=== PATIENT | female | born 1995 | race Caucasian/White ===

== ENCOUNTER 2019-05-30 14:42 | Outpatient (CLI) | payer BC, SELFPAY ==
[2019-06-01 09:44] LABS: Hepatitis C Ab w Rflx HCV PCR Negative (NEGAT)
[2019-06-01 10:49] LABS: Hepatitis B Surface Ag Negative (NEGAT)
[2019-06-01 10:52] LABS: HIV-1/2 Ag & Ab Screen Negative (NEGAT)
[2019-06-01 12:05] LABS: Syphilis Serology (RPR) Negative (Negative)
[2019-06-01 15:27] LABS: Chlamydia Result Negative; GC Result Negative; Specimen Description CERVIX
== END 2019-05-30 15:02 ==
PROVIDERS: PCP Nurse Practitioner; Visit Provider Nurse Practitioner Family
DX: Z11.3 Encounter for screening for infections with a predominantly sexual mode of transmission (principal); Z11.59 Encounter for screening for other viral diseases; Z11.4 Encounter for screening for human immunodeficiency virus [HIV]
CPT/HCPCS: 36415; 86803; 87340; 87389; 87491; 87591; 86592

== ENCOUNTER 2020-03-14 14:05 | Outpatient (REF) | payer BC, SELFPAY ==
[2020-03-16 07:36] LABS: COVID-19 RT-PCR Result NEGATIVE (Negative)
== END 2020-03-14 14:25 ==
LOC: NCHCN 14:05
PROVIDERS: PCP Nurse Practitioner; Visit Provider Nurse Practitioner Family
DX: Z11.59 Encounter for screening for other viral diseases (principal)
CPT/HCPCS: U0003

== ENCOUNTER 2020-08-15 20:20 | Outpatient (REF) | payer BC, SELFPAY ==
[2020-08-21 02:59] LABS: Patient Race White; SARS-CoV-2 RNA Undetected (Undetected); SARS-CoV-2 Specimen Source Nasal
== END 2020-08-15 20:40 ==
LOC: NCHCN 20:20
PROVIDERS: PCP Nurse Practitioner; Visit Provider Nurse Practitioner Family
DX: R51.9 Headache, unspecified (principal)
CPT/HCPCS: U0003

== ENCOUNTER 2020-09-27 02:19 | Outpatient (REF) | payer BC, SELFPAY ==
[2020-09-27 20:30] LABS: COVID-19 RT-PCR UVMMC Result Negative (Negative)
== END 2020-09-27 02:39 ==
LOC: LBO 02:19
PROVIDERS: PCP Nurse Practitioner; Visit Provider Nurse Practitioner Family
DX: Z11.59 Encounter for screening for other viral diseases (principal)
CPT/HCPCS: U0003

== ENCOUNTER 2021-01-31 11:02 | Outpatient (CLI) | payer OTHER, SELFPAY ==
--- NOTE | 2021-01-31 10:45 | DI.RAD_ITS ---
EXAM: XR WRIST LT COMP NAVICULAR CLINICAL HISTORY: left wrist pain. TECHNIQUE: 2D digital imaging was performed. COMPARISON: No exams were available for comparison FINDINGS: BONES: No acute fracture is present. No bony destructive lesion is seen. JOINTS: The carpal bones are normally aligned. SOFT TISSUE: Normal. IMPRESSION: Unremarkable radiographs of the left wrist. DATA REPOSITORY: RADIATION DOSE DELIVERED:
== END 2021-01-31 11:03 | disposition home or self-care (01) ==
LOC: DIORS 11:03
PROVIDERS: PCP Nurse Practitioner; Referring Provider Nurse Practitioner Family; Visit Provider Physician Assistant
DX: M25.532 Pain in left wrist (principal)
CPT/HCPCS: 73110

== ENCOUNTER 2021-06-03 04:23 | Outpatient (CLI) | payer OTHER, SELFPAY ==
[2021-06-03 19:38] LABS: COVID-19 RT-PCR UVMMC Result Negative (Negative)
== END 2021-06-03 04:24 | disposition home or self-care (01) ==
LOC: LBO 04:23
PROVIDERS: PCP Nurse Practitioner; Visit Provider Nurse Practitioner Family
DX: Z20.822 Contact with and (suspected) exposure to COVID-19 (principal)
CPT/HCPCS: U0003

== ENCOUNTER 2021-08-22 12:53 | Outpatient (REF) | payer OTHER, SELFPAY ==
--- NOTE | 2021-08-22 11:00 | PAPFT_PTH ---
PATIENT: Deanna Schmitt LOC: [facility] U#:[id number] AGE/SX: 26/F ROOM: RE08/22/[address]: MARCIA Freitas : 1995 BED: DIS: 08/22/2021 SPEC #: [id number] RECD: 08/22/21 12:57 STATUS: DIAZ REQ #: [id number] KYLAH: 08/22/21 11:[address]: Hodan Carmona DEPT: [facility] Cytology RECD BY: Alejandra Grace ENTERED: 08/22/21 12:57 SP TYPE: PAPFT OTHR DR: Nadine Lira Tissues: 1 - CX/ENDOCX FOR PAP SMEARS Procedures: PAP THIN PREP/[facility] Screening Comments: [id number]
[2021-08-25 14:39] LABS: Chlamydia Result Negative (Negative); GC Result Negative (Negative)
== END 2021-08-22 12:54 | disposition home or self-care (01) ==
LOC: LBN 12:53
PROVIDERS: PCP Nurse Practitioner; Visit Provider Nurse Practitioner Family
DX: Z12.4 Encounter for screening for malignant neoplasm of cervix (principal); Z11.3 Encounter for screening for infections with a predominantly sexual mode of transmission
CPT/HCPCS: 87491; 87591; 88142

== ENCOUNTER 2022-01-23 20:49 | Outpatient (REF) | payer OTHER, SELFPAY ==
[2022-02-02 10:49] LABS: Testosterone, Free 0.47 ng/dL (0.06-1.06); Testosterone, Total 43 ng/dL (8-60)
== END 2022-01-23 20:50 | disposition home or self-care (01) ==
LOC: NCHCN 20:49
PROVIDERS: PCP Nurse Practitioner; Visit Provider Nurse Practitioner Family
DX: L70.8 Other acne (principal)
CPT/HCPCS: 84402; 84403

== ENCOUNTER 2022-01-26 09:33 | Outpatient (REF) | payer OTHER, SELFPAY | END 2022-01-26 09:34 | disposition home or self-care (01) | LOC: LBN 09:33 | PROVIDERS: PCP Nurse Practitioner; Visit Provider Nurse Practitioner Women's Health | DX: R30.0 Dysuria (principal) | CPT/HCPCS: 87086 ==

== ENCOUNTER 2022-02-16 13:48 | Emergency (ER) | payer OTHER, SELFPAY ==
[2022-02-16 14:16] VITALS: BP 121/78; PULSE 90; RESP 16; TEMP 36.9; O2SAT 97
[2022-02-16 14:26] LABS: Bilirubin Negative (Negative); Blood Negative (Negative); Clarity Sl Cloudy (Clear); Glucose Negative (Negative); Ketones 40 mg/dL (Negative); Leukocyte Esterase Negative (Negative); Nitrite Negative (Negative); Urobilinogen 0.2 EU/dL (Up TO 0.2)
--- NOTE | 2022-02-16 15:42 | NUR.NOTE ---
Nursing Note:Pt refused repeat v/s to be done while waiting to see provider.
[2022-02-16 17:15] VITALS: BP 120/86; PULSE 99; RESP 16; TEMP 37.8; O2SAT 97
--- NOTE | 2022-02-16 18:15 | DI.CT_ITS ---
Exam(s) CT RENAL COLIC WO EXAM: CT RENAL COLIC WO CLINICAL HISTORY: bilateral flank pain. TECHNIQUE: Imaging Protocol: Axial computed tomography images with coronal and sagittal reformatted images were created and reviewed CONTRAST MATERIAL: Intravenous: none Oral: None COMPARISON: No exams were available for comparison FINDINGS: VISUALIZED LUNG BASES: Mild increased markings in the posterior basal segment of both lower lobes, sl ightly more so on the right side. No associated pleural effusions.. ABDOMEN: There is no ascites. LIVER: There are no obvious focal hepatic lesions evident of this noninfused study. GALLBLADDER/BILIARY: No obvious gallbladder pathology. CBD is not dilated. PANCREAS: No evidence of pancreatic mass nor dilatation of the pancreatic duct. SPLEEN: Spleen is not enlarged. No obvious intrasplenic lesions. ADRENALS: There are no significant adrenal masses. KIDNEYS:No cysts evident. No solid renal masses. No calculi nor hydronephrosis. . ABDOMINAL AORTA: Abdominal aorta is not enlarged. LYMPH NODES: There is no retroperitoneal nor paraaortic adenopathy. ABDOMINAL WALL: No evidence of significant anterior abdominal wall nor inguinal hernia. GI: There is no evidence of bowel obstruction, free air, nor abscess. PELVIS: LYMPH NODES: There is no intrapelvic nor inguinal adenopathy. GI: The appendix is not able to be identified. No obvious acute appendicitisno evidence of sigmoid d iverticulitis. URINARY BLADDER: No calculi nor obvious masses evident REPRODUCTIVE: There is an IUD in the endometrial canal of the uterus. OSSEOUS: No significant osseous lesions. No fractures. Sacroiliac joints unremarkable IMPRESSION: 1. No significant acute findings on this noninfused study. The appendix is not identified. There is no evidence of obvious acute appendicitis. 2. No renal calculi nor obstruction of the urinary tracts. 3. IUD is noted in the endometrial canal. RADIATION DOSE DELIVERED: 662.63mGy.cm Total DLP DATA REPOSITORY: All CT scans at this facility are submitted to the National Radiology Data Registry (NRDR) Dose Index Registry (DIR) with the [employer] (ACR). RADIATION OPTIMIZATION: All CT scans at this facility use at least one of these dose optimization te chniques: automated exposure control; mA and/or kV adjustment per patient size (includes targeted exa ms where dose is matched to clinical indication); or iterative reconstruction.
--- NOTE | 2022-02-16 18:31 | ED.GENADUL_ITS ---
Discharge Plan Disposition Patient Disposition: HOME Condition: Stable Discharge Details Clinical Impression: Flank pain Primary Care Provider: Nadine Lira ED Provider: Daljit Freire Home Meds and New Rx's Prescriptions: New ciprofloxacin HCl 500 mg tablet 500 mg PO BID Qty: 14 0RF Continued ParaGard T 380A 380 square mm intrauterine device 1 device intrauterine ONCE Qty: 1 0RF Rx Instructions: as a single dose ibuprofen 800 mg tablet 800 mg PO Q8H Qty: 60 3RF Discharge Instructions Additional Instructions: Your cat scan did not show evidence of kidney stones. You are being treated for possible kidney infection while the culture is pending you can take 1000mg tylenol and 600mg ibuprofen every 6 hours as needed follow up with your primary care provider if symptoms continue in a week if you feel more ill, have severe worsening pain or right lower abdomen pain return to the emergency department Medical Decision Making 26 yo female who was treated for a uti at the end of January with 5 days of macrobid per patient, comes in with recurrent dysuria and flank pain since yesterday along with body aches and chills. Denies known fevers, but does have low grade temp here to 37.8. She had a ua done prior to my exam which was unremarkable. She arrives stable but appears uncomfortable. She has bilateral cva tenderness, no rashes of the back, no significant abdominal tenderneses. States it serrano to urinate and had blood. Given her symptoms and bilateral cva tenderness will order urine culture, cbc, cmp and renal colic ct to further evaluate. She has no tachcyardia, hypoxia or pleuritic chest pain and no evidence of dvt so doubt PE pt feels much better, pain subsided. Labs remarkable for wbc of 15. She is stable, still does have the bilateral cva tenderness. CT shows no acute findings though they commented appendix not visualized. She has no rlq tenderness or tenderness anywhere on her abdomen so doubt appendicitis and do not feel ct with oral contrast indicated. Given the urinary symptoms and cva tenderness will treat as possible pyelo while cutlure is pending with cipro. Advised to f/u with pcp and return precautions given Differential Diagnosis Differential Diagnosis: pyelo, kidney stone, pancreatitis Medical Records Medical records reviewed: Yes I reviewed the patient's medical records. Imaging Data Radiologic Study: Attestation: I personally reviewed and interpreted this imaging study as follows: Imaging: CT Scan Radiologist's impression: MPRESSION: The appendix is not identified. If acute appendicitis is suspected clinically, consider repeat study after oral contrast reaches the rectum. Lab Data Lab results reviewed: Yes I reviewed the patient's lab results. HPI General Mode of arrival: ambulatory . Date/Time Provider Initiated Documentation: 02/16/22 15:16 . Limitations to Documentation: no limitations . Information obtained by: patient . History of Present Illness 26 year old F presents to the emergency department with the chief complaint of flank pain, described as moderate, Patient started experiencing this day(s) and it has been constant. improves with No relieving factors improve symptom(s), No exacerbating factors reported . Patient notes other (body aches, dysuria). Related Data Home Medications Medication Instructions Recorded Confirmed copper 380 square mm intrauterine 1 device INTRAUTERINE ONCE #1 ea 09/03/21 01/26/22 device (ParaGard T 380A) ibuprofen 800 mg tablet 800 mg PO Q8H #60 tab 10/31/21 01/26/22 ciprofloxacin HCl 500 mg tablet 500 mg PO BID #14 tab 02/16/22 Previous Rx's Medication Instructions Recorded copper 380 square mm intrauterine 1 device INTRAUTERINE ONCE #1 ea 09/03/21 device (ParaGard T 380A) ibuprofen 800 mg tablet 800 mg PO Q8H #60 tab 10/31/21 ciprofloxacin HCl 500 mg tablet 500 mg PO BID #14 tab 02/16/22 Allergies Allergy/AdvReac Type Severity Reaction Status Date / Time No Known Drug Allergies Allergy Verified 01/26/22 08:28 General Stated Complaint: FlankPain VANIA: 3 Review of Systems All systems reviewed & are unremarkable except as noted in HPI and below Constitutional Constitutional: Denies weakness Cardiovascular Cardiovascular: Denies chest pain and Denies dyspnea Respiratory Respiratory: Denies cough and Denies dyspnea Gastrointestinal Gastrointestinal: Denies abdominal pain and Denies vomiting Integumentary/Breasts Skin/Breast: Denies rash Neurologic Neurologic: Denies weakness PFSH All Active Problems (Updated 02/16/22 @ 20:10 by Daljit Freire MD) Flank pain (Acute) IUD surveillance (Acute) Dysmenorrhea (Acute) IUD (intrauterine device) in place (Acute) Contraception (Acute) Extensor intersection syndrome of left wrist (Acute) Depo-Medrol injection: 01/31/2021 De Quervain's tenosynovitis, right (Acute) Depo-Medrol injection: 01/31/2021 Family History Father Essential hypertension Scleritis Social History Smoking/Tobacco Use Status: Never Smoking risk assessment performed?: Yes Alcohol Intake: never Drug use: Never Substance use type: does not use Do you feel safe at home: Yes Do you feel safe in your relationship?: Yes History History 0 Para Hx # Term Pregnancies Multiple births Hx # Pregnancies Ectopic pregnancies AB induced Hx Number of Living Children AB spontaneous Exam Const General: no acute distress Orientation: alert HENMT Head: normal to inspection Ears: external ears normal General nose exam: external nose normal Mouth: moist mucous membranes Eyes General: appearance normal, both eyes and all related structures Neck Neck: normal visual inspection Resp Effort & Inspection: normal respiratory effort and able to speak in complete sentences Cardio Rate: regular rate GI Palpation: soft and nontender Back/Spine/Pelvis Back: CVA tenderness Skin General skin exam: no rashes or lesions noted Neuro General: patient alert and patient oriented x3 Extrem General: normal to inspection Psych Mental Status: mental status grossly normal Course Vital Signs Vital signs: Vital Signs Temperature 36.9 C 02/16/22 14:16 Pulse 90 02/16/22 14:16 Respiratory Rate 16 02/16/22 14:16 Blood Pressure 121/78 02/16/22 14:16 Pulse Oximetry 97 02/16/22 14:16 Temperature 37.8 C H 02/16/22 17:15 Temperature Source Tympanic 02/16/22 17:15 Pulse 99 H 02/16/22 17:15 Respiratory Rate 16 02/16/22 17:15 Blood Pressure 120/86 02/16/22 17:15 Blood Pressure Position Sitting 02/16/22 14:16 Pulse Oximetry 97 02/16/22 17:15 Oxygen Delivery Method Room Air 02/16/22 17:15 Oxygen Flow Rate 0 02/16/22 17:15 Pain Level 4 02/16/22 14:19 Lab/Test Results Lab/Test Results: 02/16/22 18:30 Urine - Clean Catch Urine Culture - Pending Laboratory Tests Range/Units 02/16/22 14:15 Urine Color (Yellow) Yellow Urine Clarity (Clear) Sl Cloudy Urine pH (5-8) 6.0 Ur Specific [place] (1.005-1.025) 1.010 Urine Protein (Negative) mg/dL Negative Urine Ketones (Negative) mg/dL 40 H Urine Blood (Negative) Negative Urine Nitrite (Negative) Negative Urine Bilirubin (Negative) Negative Urine Urobilinogen (Up TO 0.2) EU/dL 0.2 Ur Leukocyte Esterase (Negative) Negative Urine Glucose (Negative) mg/dL Negative POC Urine Test Start: 02/16/22 14:20 Freq: Status: Complete Protocol: Document 02/16/22 14:21 MORGAN (Rec: 02/16/22 14:21 MORGAN [id number]) Test(Urine)-POC POC- Test(urine) Negative POC- Test(urine) Negative
[2022-02-16] MEDS: Ketorolac 15 MG/ML VIAL IVP (18:42)
[2022-02-16] MEDS: Ondansetron 4 MG/2 ML VIAL IVP (18:43)
[2022-02-16] MEDS: Normal Saline 1,000 ML 1000 ML IV (18:43)
[2022-02-16 18:59] LABS: Abs Immature Grans 0.05 10^3/uL (0.0-0.06); Absolute Basophil Count 0.03 10^3/uL (0.0-0.2); Absolute Neutrophil Count 13.62 10^3/uL (1.2-6.7); Basophils % 0.2; Eosinophils % 2.6; HCT 37.9 % (36.0-46.0); HGB 12.6 g/dL (11.2-15.7); Immature Grans % 0.3; Lymphocytes % 3.9; MCH 30.5 pg (27.0-33.0); MCHC 33.2 % (32.0-36.0); MCV 92 fL (80-95); Platelet Count 240 10^3/uL (130-400); RBC 4.13 10^6/uL (3.93-5.22); RDW 12.6 % (11.7-14.6); RDW-SD 42.5 fL; WBC 15.48 10^3/uL (4.4-10.8)
[2022-02-16 19:08] LABS: Absolute Monocyte Count 0.77 10^3/uL (0.1-0.8)
[2022-02-16 19:14] LABS: ALT 24 U/L (14-59); AST 18 U/L (15-37); Albumin 3.8 g/dL (3.4-5.0); Alkaline Phosphatase 62 U/L (46-116); Anion Gap 8.6 mmol/L (3-11); BUN 5 mg/dL (7-18); Bilirubin, Direct 0.3 mg/dL (0.0-0.2); Bilirubin, Total 1.3 mg/dL (0.2-1.0); CO2 24.4 mmol/L (21.0-32.0); CREATININE 0.8 mg/dL (0.55-1.02); Calcium 8.8 mg/dL (8.5-10.1); Chloride 101 mmol/L (98-107); Glucose 102 mg/dL (74-106); Lipase 50 U/L (73-393); Magnesium 2.7 mg/dL (1.8-2.4); Potassium 3.2 mmol/L (3.5-5.1); Sodium 134 mmol/L (136-145); Total Protein 7.3 g/dL (6.4-8.2)
[2022-02-16 19:36] LABS: COVID-19 PCR Negative (Negative); Influenza A PCR Negative (Negative); Influenza B PCR Negative (Negative); RSV PCR Negative (Negative)
--- NOTE | 2022-02-16 19:42 | DI.VRAD_ITS ---
PROCEDURE INFORMATION: Exam: CT Abdomen And Pelvis Without Contrast Exam date and time: 02/16/2022 7:06 PM Age: 26 years old Clinical indication: Other: Bilateral flank pain TECHNIQUE: Imaging protocol: Computed tomography of the abdomen and pelvis without contrast. COMPARISON: US PELVIS TRANSVAG 04/27/2018 3:34 PM FINDINGS: Lungs: Right basilar atelectasis Liver: Normal. No mass. Gallbladder and bile ducts: Normal. No calcified stones. No ductal dilation. Pancreas: Normal. No ductal dilation. Spleen: Normal. No splenomegaly. Adrenal glands: Normal. No mass. Kidneys and ureters: There is no evidence of renal or ureteral calcifications. Stomach and bowel: Constipation in the colon Appendix: The appendix is not identified. If acute appendicitis is suspected clinically, consider repeat study after oral contrast reaches the rectum. Intraperitoneal space: Mild amount of free fluid in the pelvis Vasculature: Unremarkable. No abdominal aortic aneurysm. Lymph nodes: Unremarkable. No enlarged lymph nodes. Urinary bladder: Unremarkable as visualized. Reproductive: IUD in the uterus Bones/joints: Unremarkable. No acute fracture. Soft tissues: Unremarkable. IMPRESSION: The appendix is not identified. If acute appendicitis is suspected clinically, consider repeat study after oral contrast reaches the rectum. Dictated and Authenticated by: Quinton Carl MD. Ordering:KRYSTAL Boacnegra MD
[2022-02-16 19:46] LABS: Source Nasopharynx
[2022-02-16] MEDS: Ciprofloxacin 500 MG TAB PO (20:16)
== END 2022-02-16 20:22 | disposition home or self-care (01) ==
PROVIDERS: Emergency Provider Emergency Medicine; PCP Nurse Practitioner Family
DX: R10.9 Unspecified abdominal pain (principal); R30.0 Dysuria; D72.829 Elevated white blood cell count, unspecified
CPT/HCPCS: 80053; 81025; 83690; 87637; 96361; 96374; 96375; 99284; 74176; 81003; 82248; 83735; 85025; 87086; J1885; J2405

== ENCOUNTER 2022-03-12 19:19 | Outpatient (REF) | payer OTHER, SELFPAY ==
[2022-03-13 20:04] LABS: FSH 5.7 mIU/mL (See Note); LH 9.2 mIU/mL (See Note)
[2022-03-17 14:49] LABS: Dehydroepiandrosterone (DHEA) 3.1 ng/mL (<13)
[2022-03-18 10:58] LABS: Testosterone, Free 0.38 ng/dL (0.06-1.06); Testosterone, Total 47 ng/dL (8-60)
== END 2022-03-12 19:20 | disposition home or self-care (01) ==
LOC: NCHCN 19:19
PROVIDERS: PCP Nurse Practitioner; Visit Provider Nurse Practitioner Family
DX: L70.8 Other acne (principal); Z13.29 Encounter for screening for other suspected endocrine disorder
CPT/HCPCS: 84402; 84403; 82626; 83001; 83002

== ENCOUNTER 2022-08-18 19:49 | Outpatient (REF) | payer OTHER, SELFPAY ==
[2022-08-18 19:22] LABS: ESR 3 mm/hr (0-20)
[2022-08-18 19:24] LABS: HCT 38.5 % (36.0-46.0); HGB 12.7 g/dL (11.2-15.7); MCH 30.6 pg (27.0-33.0); MCV 93 fL (80-95); MPV 11.6 fL (8.0-11.0); Platelet Count 261 10^3/uL (130-400); RBC 4.15 10^6/uL (3.93-5.22); RDW 12.3 % (11.7-14.6); RDW-SD 42.4 fL; WBC 9.19 10^3/uL (4.4-10.8)
[2022-08-18 19:38] LABS: Prothrombin Time 9.9 sec (9.3-11.0)
[2022-08-18 19:41] LABS: ALT 20 U/L (14-59); AST 17 U/L (15-37); Alkaline Phosphatase 59 U/L (46-116); Anion Gap 9.1 mmol/L (3-11); BUN 10 mg/dL (7-18); Bilirubin, Total 0.5 mg/dL (0.2-1.0); CO2 28.9 mmol/L (21.0-32.0); CREATININE 0.7 mg/dL (0.55-1.02); Calcium 9.3 mg/dL (8.5-10.1); Chloride 103 mmol/L (98-107); Estimated GFR 120.74 (mL/min/1.73m2); Glucose 91 mg/dL (74-106); Potassium 3.7 mmol/L (3.5-5.1); Sodium 141 mmol/L (136-145); Total Protein 7.2 g/dL (6.4-8.2)
[2022-08-19 16:57] LABS: Rheumatoid Factor <8.6 IU/mL (<12.0)
[2022-08-20 09:37] LABS: Lyme Ab w Rflx to Lyme Confirm Negative (Negative)
[2022-08-20 14:03] LABS: ANA Interpretation Negative (Negative)
[2022-08-22 18:08] LABS: Anaplasma phagocytophilum Negative (Negative); B. miyamotoi PCR Negative (Negative); Babesia divergens/MO-1 Negative (Negative); Babesia duncani Negative (Negative); Babesia microti Negative (Negative); Ehrlichia chaffeensis Negative (Negative); Ehrlichia ewingii/canis Negative (Negative); Ehrlichia muris eauclairensis Negative (Negative)
== END 2022-08-18 19:50 | disposition home or self-care (01) ==
LOC: NCHCN 19:49
PROVIDERS: PCP Nurse Practitioner; Visit Provider Nurse Practitioner Family
DX: R23.8 Other skin changes (principal); M62.9 Disorder of muscle, unspecified; M25.59 Pain in other specified joint
CPT/HCPCS: 80053; 85027; 85652; 87798; 85610; 86038; 86140; 86431; 86618

== ENCOUNTER 2022-10-27 09:55 | Outpatient (REF) | payer OTHER, SELFPAY ==
[2022-10-27 17:09] LABS: TSH (W/Ref FT4) 2.23 uIU/mL (0.36-3.74)
== END 2022-10-27 09:56 | disposition home or self-care (01) ==
LOC: NCHCN 09:55
PROVIDERS: PCP Nurse Practitioner; Visit Provider Nurse Practitioner Family
DX: L65.9 Nonscarring hair loss, unspecified (principal)
CPT/HCPCS: 84443

== ENCOUNTER 2024-03-20 16:18 | Outpatient (CLI) | payer BC, SELFPAY ==
[2024-03-20 10:26] LABS: Abs Immature Grans 0.02 10^3/uL (0.0-0.06); Absolute Basophil Count 0.04 10^3/uL (0.0-0.2); Absolute Eosinophil Count 0.16 10^3/uL (0.0-0.7); Absolute Lymphocyte Count 2.42 10^3/uL (1.2-3.4); Absolute Neutrophil Count 4.63 10^3/uL (1.2-6.7); Basophils % 0.5 %; Eosinophils % 2.1 %; HCT 39.3 % (36.0-46.0); HGB 12.9 g/dL (11.2-15.7); Immature Grans % 0.3 %; Lymphocytes % 31.1 %; MCHC 32.8 % (32.0-36.0); MCV 91 fL (80-95); MPV 10.8 fL (8.0-11.0); Monocytes % 6.4 %; Neutrophils % 59.6 %; Platelet Count 244 10^3/uL (130-400); RDW 12.7 % (11.7-14.6); RDW-SD 42.6 fL; WBC 7.77 10^3/uL (4.4-10.8)
[2024-03-20 10:29] LABS: ESR 4 mm/hr (0-20)
[2024-03-20 11:13] LABS: ALT 24 U/L (14-59); AST 17 U/L (15-37); Albumin 3.6 g/dL (3.4-5.0); Alkaline Phosphatase 80 U/L (46-116); Anion Gap 8.7 mmol/L (3-11); BUN 12 mg/dL (7-18); Bilirubin, Total 0.5 mg/dL (0.2-1.0); CO2 27.3 mmol/L (21.0-32.0); CREATININE 0.8 mg/dL (0.55-1.02); Calcium 8.7 mg/dL (8.5-10.1); Calculated LDL 74 mg/dL (<100); Chloride 105 mmol/L (98-107); Cholesterol 172 mg/dL (<200); Estimated GFR 102.22 (mL/min/1.73m2); Glucose 94 mg/dL (74-106); HDL Cholesterol 89 mg/dL (40-60); Potassium 4.1 mmol/L (3.5-5.1); Sodium 141 mmol/L (136-145); TSH (W/Ref FT4) 1.49 uIU/mL (0.36-3.74); Total Protein 7.3 g/dL (6.4-8.2); Triglyceride 45 mg/dL (<150); Vitamin D 25 Total 30.6 ng/mL (30-100)
[2024-03-20 11:24] LABS: C-Reactive Protein < 0.50 mg/dL (<or=0.5)
[2024-03-20 17:26] LABS: Rheumatoid Factor <8.6 IU/mL (<12.0)
[2024-03-21 09:27] LABS: Cyclic Citrullinated Peptide <2.5 U/mL (<5.0)
[2024-03-21 11:01] LABS: Lyme Ab w Rflx to Lyme Confirm Negative (Negative)
[2024-03-21 14:15] LABS: ANA Interpretation Negative (Negative)
[2024-03-22 19:24] LABS: Anaplasma phagocytophilum Negative (Negative); B. miyamotoi PCR Negative (Negative); Babesia divergens/MO-1 Negative (Negative); Babesia duncani Negative (Negative); Babesia microti Negative (Negative); Ehrlichia chaffeensis Negative (Negative); Ehrlichia ewingii/canis Negative (Negative); Ehrlichia muris eauclairensis Negative (Negative)
== END 2024-03-20 16:19 | disposition home or self-care (01) ==
LOC: LBO 16:18
PROVIDERS: PCP Nurse Practitioner Family; Visit Provider Nurse Practitioner
DX: E55.9 Vitamin D deficiency, unspecified (principal); Z13.220 Encounter for screening for lipoid disorders; F41.9 Anxiety disorder, unspecified; M25.40 Effusion, unspecified joint; R53.83 Other fatigue
CPT/HCPCS: 36415; 80053; 80061; 82306; 85652; 86200; 87798; 84443; 85025; 86038; 86140; 86431; 86618

== ENCOUNTER → 2024-03-27 10:43 | Outpatient (CLI) | payer BC, SELFPAY ==
--- NOTE | 2024-03-27 13:45 | DI.RAD_ITS ---
Exam(s) XR SCOLIOSIS T-L SPINE EXAM: XR SCOLIOSIS T-L SPINE CLINICAL HISTORY: Scoliosis evaluation. TECHNIQUE: 2D digital imaging was performed. COMPARISON: No exams were available for comparison FINDINGS: Scoliosis: Mild upper thoracic dextroscoliosis of 11 degrees. Thoracolumbar scoliosis of 26 degrees, convex toward the left with apex at the T12-L1 level. Vertebrae: No anomalies seen. No hypertrophy is identified. Remainder of the visualized osseous and soft tissue structures: No acute findings. IMPRESSION: Mild upper thoracic dextro scoliosis 11 degrees. Levoscoliosis thoracolumbar junction 26 degrees. DATA REPOSITORY: RADIATION DOSE DELIVERED:
== END ==
PROVIDERS: PCP Nurse Practitioner Family; Visit Provider Nurse Practitioner
DX: M41.84 Other forms of scoliosis, thoracic region (principal)
CPT/HCPCS: 72082

== ENCOUNTER 2024-04-24 15:35 | Outpatient (REF) | payer BC, SELFPAY ==
--- NOTE | 2024-04-24 15:00 | PAPFT_PTH ---
PATIENT: Deanna Schmitt LOC: [facility] U#:[id number] AGE/SX: 28/F ROOM: RE04/24/[address]: Radha Freire NP : 1995 BED: DIS: 04/24/2024 SPEC #: [id number] RECD: 04/24/24 17:35 STATUS: DIAZ REINA #: [id number] KYLAH: 04/24/24 15:[address]: Mouna PRASAD,Radha DEPT: [facility] Cytology RECD BY: Alejandra Grace ENTERED: 04/24/24 17:36 SP TYPE: PAPFT OTHR DR: Yareli Cruz, SANTIAGO Tissues: 1 - CX/ENDOCX FOR PAP SMEARS Procedures: PAP THIN PREP/[facility] Screening Comments: [id number] (CHLAMYDIA/GC)
[2024-04-25 12:45] LABS: Chlamydia Result Negative (Negative); GC Result Negative (Negative)
== END 2024-04-24 15:36 | disposition home or self-care (01) ==
LOC: LBN 15:35
PROVIDERS: PCP Nurse Practitioner Family; Visit Provider Nurse Practitioner Women's Health
DX: Z01.419 Encounter for gynecological examination (general) (routine) without abnormal findings (principal); Z12.4 Encounter for screening for malignant neoplasm of cervix; Z11.3 Encounter for screening for infections with a predominantly sexual mode of transmission
CPT/HCPCS: 87491; 87591; 88142

== ENCOUNTER 2025-05-28 15:14 | Outpatient (CLI) | payer BC, SELFPAY ==
[2025-05-28 13:37] LABS: Abs Immature Grans 0.01 10^3/uL (0.0-0.06); HCT 37.0 % (36.0-46.0); HGB 12.2 g/dL (11.2-15.7); Immature Grans % 0.2 %; MCH 29.7 pg (27.0-33.0); MCHC 33.0 % (32.0-36.0); MCV 90 fL (80-95); MPV 10.6 fL (8.0-11.0); Platelet Count 213 10^3/uL (130-400); RBC 4.11 10^6/uL (3.93-5.22); RDW 13.3 % (11.7-14.6); RDW-SD 44.4 fL; WBC 6.32 10^3/uL (4.4-10.8)
[2025-05-28 14:07] LABS: ALT 20 U/L (14-59); AST 18 U/L (15-37); Albumin 3.5 g/dL (3.4-5.0); Alkaline Phosphatase 59 U/L (46-116); Anion Gap 5.9 mmol/L (3-11); BUN 9 mg/dL (7-18); Bilirubin, Total 0.4 mg/dL (0.2-1.0); CO2 31.1 mmol/L (21.0-32.0); Calcium 9.0 mg/dL (8.5-10.1); Calculated LDL 83 mg/dL (<100); Chloride 105 mmol/L (98-107); Cholesterol 170 mg/dL (<200); Estimated GFR 118.51 (mL/min/1.73m2); Glucose 81 mg/dL (74-106); HDL Cholesterol 68 mg/dL (>or=50); Potassium 3.9 mmol/L (3.5-5.1); Sodium 142 mmol/L (136-145); TSH 1.44 uIU/mL (0.36-3.74); Total Protein 7.1 g/dL (6.4-8.2); Triglyceride 99 mg/dL (<150)
[2025-05-28 14:24] LABS: Hemoglobin A1C 4.9 % (<5.7)
[2025-05-28 14:52] LABS: Glucose Negative (Negative)
== END 2025-05-28 15:15 | disposition home or self-care (01) ==
LOC: LBO 15:16
PROVIDERS: PCP Nurse Practitioner Family; Visit Provider Family Medicine
DX: R53.83 Other fatigue (principal); Z13.9 Encounter for screening, unspecified
CPT/HCPCS: 36415; 80053; 80061; 81003; 83036; 84443; 85025

== ENCOUNTER 2025-06-08 09:46 | Outpatient (REF) | payer BC, SELFPAY ==
[2025-06-11 12:05] LABS: Chlamydia Result Negative (Negative); GC Result Negative (Negative)
== END 2025-06-08 09:47 | disposition home or self-care (01) ==
LOC: LBN 09:46
PROVIDERS: PCP Nurse Practitioner Family; Visit Provider Obstetrics & Gynecology
DX: Z11.3 Encounter for screening for infections with a predominantly sexual mode of transmission (principal)
CPT/HCPCS: 87491; 87591

== ENCOUNTER 2025-06-12 15:54 | Outpatient (CLI) | payer BC, SELFPAY ==
[2025-06-12 14:42] LABS: Iron 100 ug/dL (50-170); Total Iron Binding Capacity 374 ug/dL (250-450)
[2025-06-12 15:17] LABS: Ferritin 23 ng/mL (8-252); Vitamin B12 612 pg/mL (193-986)
[2025-06-12 15:20] LABS: Folate > 20.0 ng/mL (8.6-20.0)
[2025-06-13 10:00] LABS: HIV-1/2 Ag & Ab Screen Negative (Negative)
[2025-06-13 10:22] LABS: Hepatitis C Ab w Rflx HCV PCR Negative (Negative)
[2025-06-13 11:43] LABS: Syphilis Serology (RPR) Negative (Negative)
[2025-06-14 15:00] LABS: Coag FactorVIII Activity Assay 110 % (55 - 200)
== END 2025-06-12 15:55 | disposition home or self-care (01) ==
LOC: LBO 15:54
PROVIDERS: PCP Nurse Practitioner Family; Visit Provider Obstetrics & Gynecology
DX: Z86.2 Personal history of diseases of the blood and blood-forming organs and certain disorders involving the immune mechanism (principal); R53.83 Other fatigue; Z20.2 Contact with and (suspected) exposure to infections with a predominantly sexual mode of transmission; R23.3 Spontaneous ecchymoses; R04.0 Epistaxis; Z01.419 Encounter for gynecological examination (general) (routine) without abnormal findings; N93.9 Abnormal uterine and vaginal bleeding, unspecified
CPT/HCPCS: 36415; 85240; 85246; 85390; 85397; 86803; 87340; 87389; 82607; 82728; 82746; 83540; 83550; 86592